=== PATIENT | female | born 1950 | race Caucasian/White ===

== ENCOUNTER 2021-01-27 16:09 | Inpatient (IN) ==
[2021-01-27] MEDS ORDERED: Nitroglycerin 0.4 MG TAB.SUBL SL PRN (16:24)
[2021-01-27] MEDS ORDERED: Ondansetron ODT 4 MG TAB.RAPDIS SL SCH (20:00)
[2021-01-27] MEDS: Simethicone 80 MG TAB.CHEW PO PRN (21:00)
[2021-01-27] MEDS ORDERED: Ondansetron ODT 4 MG TAB.RAPDIS SL PRN (21:34)
[2021-01-28] MEDS: Spironolactone 25 MG TABLET PO SCH (08:11)
[2021-01-28] MEDS: Aspirin Enteric Coated 81 MG Tablet PO SCH (08:11)
[2021-01-28] MEDS: Simethicone 80 MG TAB.CHEW PO PRN (20:06)
[2021-01-29] MEDS: Acetaminophen 325 MG TABLET PO PRN (05:00)
[2021-01-29 07:46] LABS: Hematocrit 28.2 % (35.3-44.9); Mean Corpuscular HGB Conc 31.9 g/dL (31.6-35.5); Mean Corpuscular Hemoglobin 28.1 pg (28.0-33.3); Mean Corpuscular Volume 88.1 fL (83.0-100.0); Mean Platelet Volume 13.3 fL (9.4-12.4); Red Cell Distribution Width 16.3 % (11.5-14.5); White Blood Count 3.9 K/mcL (4.3-11.1)
[2021-01-29 07:55] LABS: Platelet Count 44 K/mcL (140-400)
[2021-01-29 08:14] LABS: Alanine Aminotransferase 10 Units/L (7-52); Albumin 2.7 g/dL (3.5-5.7); Albumin/Globulin Ratio 1.9 (1.1-2.2); Alkaline Phosphatase 61 Units/L (34-104); Aspartate Amino Transferase 30 Units/L (13-39); BUN/Creatinine Ratio 23 (6-26); Bilirubin,Total 1.7 mg/dL (0.3-1.0); Blood Urea Nitrogen 23 mg/dL (8-23); Calcium 7.7 mg/dL (8.6-10.3); Carbon Dioxide 27 mEq/L (23-29); Chloride 109 mEq/L (98-107); Globulin 1.4 g/dL (2.4-3.5); Glucose 94 mg/dL (70-105); Magnesium 1.3 mg/dL (1.6-2.6); Osmolality,Calculated 299 (280-300); Phosphorous 2.4 mg/dL (2.7-4.5); Potassium 3.3 mEq/L (3.5-5.1); Sodium 143 mEq/L (136-145); Total Protein 4.1 g/dL (6.4-8.9); eGFR For African Americans > 60 (> 60); eGFR For Non-African Americans 56 (> 60)
[2021-01-29] MEDS: Spironolactone 25 MG TABLET PO SCH (08:47)
[2021-01-29] MEDS: Aspirin Enteric Coated 81 MG Tablet PO SCH (08:47)
[2021-01-29] MEDS: Simethicone 80 MG TAB.CHEW PO PRN (19:55)
[2021-01-30] MEDS: Aspirin Enteric Coated 81 MG Tablet PO SCH (08:28)
[2021-01-30] MEDS: Spironolactone 25 MG TABLET PO SCH (08:28)
[2021-01-30] MEDS ORDERED: Potassium Chloride Elixir 20 MEQ/15 ML UDC PO ONE ×2 (10:04→11:25)
[2021-01-30] MEDS ORDERED: Furosemide 20 MG TABLET PO PRN (10:26)
[2021-01-30] MEDS: Simethicone 80 MG TAB.CHEW PO PRN (21:16)
[2021-01-30] MEDS: hydrOXYzine pamoate 25 MG CAPSULE PO PRN (23:05)
[2021-01-31 07:34] LABS: INR 1.5; Prothrombin Time 17.1 Seconds (9.4-12.1)
[2021-01-31 07:44] LABS: Alanine Aminotransferase 12 Units/L (7-52); Albumin 2.8 g/dL (3.5-5.7); Albumin/Globulin Ratio 1.8 (1.1-2.2); Alkaline Phosphatase 70 Units/L (34-104); Aspartate Amino Transferase 35 Units/L (13-39); BUN/Creatinine Ratio 18 (6-26); Bilirubin,Total 1.7 mg/dL (0.3-1.0); Blood Urea Nitrogen 15 mg/dL (8-23); Carbon Dioxide 27 mEq/L (23-29); Chloride 109 mEq/L (98-107); Globulin 1.6 g/dL (2.4-3.5); Glucose 93 mg/dL (70-105); Magnesium 1.5 mg/dL (1.6-2.6); Osmolality,Calculated 295 (280-300); Potassium 3.6 mEq/L (3.5-5.1); Sodium 142 mEq/L (136-145); Total Protein 4.4 g/dL (6.4-8.9); eGFR For African Americans > 60 (> 60); eGFR For Non-African Americans > 60 (> 60)
[2021-01-31] MEDS: Furosemide 20 MG TABLET PO SCH (08:10)
[2021-01-31] MEDS: Spironolactone 25 MG TABLET PO SCH (08:10)
[2021-01-31] MEDS: Acetaminophen 325 MG TABLET PO PRN (08:11)
[2021-01-31] MEDS: Aspirin Enteric Coated 81 MG Tablet PO SCH (08:11)
[2021-01-31] MEDS ORDERED: Spironolactone 25 MG TABLET PO SCH (09:00)
[2021-01-31] MEDS: Magnesium Oxide 400 MG TABLET PO SCH (14:57)
[2021-02-01] MEDS: Aspirin Enteric Coated 81 MG Tablet PO SCH (09:15)
[2021-02-01] MEDS: Furosemide 20 MG TABLET PO SCH (09:15)
[2021-02-01] MEDS: Magnesium Oxide 400 MG TABLET PO SCH ×2 (09:16→22:03)
[2021-02-01] MEDS: Spironolactone 25 MG TABLET PO SCH (09:16)
[2021-02-01 09:39] LABS: BUN/Creatinine Ratio 16 (6-26); Blood Urea Nitrogen 15 mg/dL (8-23); Calcium 8.5 mg/dL (8.6-10.3); Carbon Dioxide 26 mEq/L (23-29); Chloride 104 mEq/L (98-107); Glucose 176 mg/dL (70-105); Magnesium 1.6 mg/dL (1.6-2.6); Osmolality,Calculated 287 (280-300); Potassium 3.7 mEq/L (3.5-5.1); Sodium 136 mEq/L (136-145); eGFR For African Americans > 60 (> 60); eGFR For Non-African Americans > 60 (> 60)
[2021-02-01] MEDS: Simethicone 80 MG TAB.CHEW PO PRN (10:12)
[2021-02-01] MEDS: Simethicone 80 MG TAB.CHEW PO SCH ×2 (14:34→19:54)
[2021-02-01] MEDS: hydrOXYzine pamoate 25 MG CAPSULE PO PRN (19:55)
[2021-02-02 06:03] LABS: Hematocrit 27.6 % (35.3-44.9); Hemoglobin 8.9 g/dL (11.5-15.4); Mean Corpuscular HGB Conc 32.2 g/dL (31.6-35.5); Mean Corpuscular Hemoglobin 28.3 pg (28.0-33.3); Mean Corpuscular Volume 87.9 fL (83.0-100.0); Mean Platelet Volume 12.6 fL (9.4-12.4); Platelet Count 54 K/mcL (140-400); Red Blood Count 3.14 M/mcL (3.82-4.97); Red Cell Distribution Width 15.9 % (11.5-14.5); White Blood Count 4.7 K/mcL (4.3-11.1)
[2021-02-02 06:23] LABS: Alanine Aminotransferase 14 Units/L (7-52); Albumin 2.9 g/dL (3.5-5.7); Albumin/Globulin Ratio 1.8 (1.1-2.2); Alkaline Phosphatase 79 Units/L (34-104); Aspartate Amino Transferase 41 Units/L (13-39); BUN/Creatinine Ratio 21 (6-26); Bilirubin,Total 1.6 mg/dL (0.3-1.0); Blood Urea Nitrogen 18 mg/dL (8-23); Calcium 8.1 mg/dL (8.6-10.3); Carbon Dioxide 28 mEq/L (23-29); Chloride 105 mEq/L (98-107); Globulin 1.6 g/dL (2.4-3.5); Glucose 104 mg/dL (70-105); Magnesium 1.7 mg/dL (1.6-2.6); Osmolality,Calculated 290 (280-300); Phosphorous 1.8 mg/dL (2.7-4.5); Potassium 3.8 mEq/L (3.5-5.1); Sodium 139 mEq/L (136-145); Total Protein 4.5 g/dL (6.4-8.9); eGFR For African Americans > 60 (> 60); eGFR For Non-African Americans > 60 (> 60)
[2021-02-02] MEDS: Magnesium Oxide 400 MG TABLET PO SCH ×2 (08:08→19:41)
[2021-02-02] MEDS: Furosemide 20 MG TABLET PO SCH ×2 (08:09→15:55)
[2021-02-02] MEDS: Spironolactone 25 MG TABLET PO SCH (08:09)
[2021-02-02] MEDS: Aspirin Enteric Coated 81 MG Tablet PO SCH (08:09)
[2021-02-02] MEDS: Simethicone 80 MG TAB.CHEW PO SCH ×3 (11:22→19:46)
[2021-02-03] MEDS: Spironolactone 25 MG TABLET PO SCH (08:11)
[2021-02-03] MEDS: Magnesium Oxide 400 MG TABLET PO SCH ×2 (08:11→19:39)
[2021-02-03] MEDS: Furosemide 20 MG TABLET PO SCH ×2 (08:11→16:15)
[2021-02-03] MEDS: Aspirin Enteric Coated 81 MG Tablet PO SCH (08:11)
[2021-02-03] MEDS: Simethicone 80 MG TAB.CHEW PO SCH ×3 (10:17→19:39)
[2021-02-04] MEDS: Acetaminophen 325 MG TABLET PO PRN (02:37)
[2021-02-04] MEDS: Magnesium Oxide 400 MG TABLET PO SCH ×2 (09:16→20:09)
[2021-02-04] MEDS: Aspirin Enteric Coated 81 MG Tablet PO SCH (09:16)
[2021-02-04] MEDS: Spironolactone 25 MG TABLET PO SCH (09:16)
[2021-02-04] MEDS: Furosemide 20 MG TABLET PO SCH ×2 (09:17→16:38)
[2021-02-04] MEDS: Simethicone 80 MG TAB.CHEW PO SCH ×3 (09:21→19:59)
[2021-02-05] MEDS: Acetaminophen 325 MG TABLET PO PRN (05:07)
[2021-02-05 06:55] VITALS: BP 124/56
[2021-02-05] MEDS: Furosemide 20 MG TABLET PO SCH (08:06)
[2021-02-05] MEDS: Aspirin Enteric Coated 81 MG Tablet PO SCH (08:07)
[2021-02-05] MEDS: Magnesium Oxide 400 MG TABLET PO SCH (08:07)
[2021-02-05] MEDS: Spironolactone 25 MG TABLET PO SCH (08:07)
[2021-02-05] MEDS: Simethicone 80 MG TAB.CHEW PO SCH (09:19)
== END 2021-02-05 12:00 | disposition home health service (06) | DRG 945 ==
LOC: INPPIK 19:56
PROVIDERS: ADMIT Family Medicine; ATTEND Family Medicine